=== PATIENT | female | born 1980 | race Caucasian/White ===

== ENCOUNTER 2017-12-16 13:40 | Outpatient (CLI) | payer BC | END 2017-12-16 13:41 | disposition home or self-care (01) | LOC: BICRAD 13:40 | PROVIDERS: ATTEND Internal Medicine | DX: R10.84 Generalized abdominal pain (principal) | CPT/HCPCS: 74018 ==

== ENCOUNTER 2019-10-12 13:49 | Outpatient (CLI) | payer BC ==
--- NOTE | 2019-10-12 14:44 | MMO ---
Bilateral MAMMO Bilat Diag [facility]. CLINICAL HISTORY: Patient is 38 years old and is seen for diagnostic exam. The patient has the following family history of breast cancer: mother. 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 The patient has a history of left Lumpectomy in February, - dcis. VIEWS: The views performed were: bilateral craniocaudal with tomosynthesis; bilateral mediolateral oblique with tomosynthesis; bilateral mediolateral with tomosynthesis; and bilateral exaggerated craniocaudal. FILMS COMPARED: The present examination has been compared to prior imaging studies performed at [facility] on 01/20/2019 and 01/24/2019. This study has been interpreted with the assistance of computer-aided detection. MAMMOGRAM FINDINGS: The breasts are heterogeneously dense, which could obscure a lesion on mammography. Finding 1: There is an area of architectural distortion seen in the posterior upper-outer region of the left breast. This architectural distortion at least partly, and probably entirely, represents post operative changes. However, because the appearance is a significant change, short interval follow up is recommended to rule out any potential underlying neoplatic tissue. Finding 2: Finding remains unchanged from the prior study. There are no suspicious masses, calcifications or areas of architectural distortion in the right breast. IMPRESSION: FINDING 1: AREA OF ARCHITECTURAL DISTORTION IN THE LEFT BREAST IS PROBABLY BENIGN. FOLLOW-UP IN 6 MONTHS IS RECOMMENDED. FINDING 2: FINDING IN THE RIGHT BREAST IS BENIGN. THE RESULTS OF THIS EXAM WERE SENT TO THE PATIENT. ACR BI-RADS Category 3 - Probably benign finding - short interval follow-up suggested. [facility] will notify the patient of the need for additional imaging services. MAMMOGRAPHY NOTE: 1. A negative mammogram report should not delay a biopsy if a dominant of clinically suspicious mass is present. 2. Approximately 10% to 15% of breast cancers are not detected by mammography. 3. Adenosis and dense breasts may obscure an underlying neoplasm. Reported by: DINO CHAN MD Electonically Signed: [id number]
== END 2019-10-12 13:50 | disposition home or self-care (01) ==
LOC: BICMAMMO 13:49
PROVIDERS: ATTEND Family Medicine
DX: Z08 Encounter for follow-up examination after completed treatment for malignant neoplasm (principal); Z85.3 Personal history of malignant neoplasm of breast
CPT/HCPCS: 77066; G0279

== ENCOUNTER 2020-05-17 14:00 | Outpatient (CLI) | payer BC ==
--- NOTE | 2020-05-17 15:29 | RAD ---
EXAM: CHEST TWO VIEWS: 05/17/20 HISTORY: History of COVID-19, acute bronchitis. FINDINGS: Heart size is normal. The lungs are clear. No confluent pneumonia, overt edema or pleural effusion. IMPRESSION: No significant acute intrathoracic disease. POS: OFF
== END 2020-05-17 14:01 | disposition home or self-care (01) ==
LOC: BICRAD 14:00
PROVIDERS: ATTEND Family Medicine
DX: J20.9 Acute bronchitis, unspecified (principal); Z86.19 Personal history of other infectious and parasitic diseases
CPT/HCPCS: 71046

== ENCOUNTER 2020-08-14 09:35 | Outpatient (CLI) | payer BC | END 2020-08-14 09:36 | disposition home or self-care (01) | LOC: BICMAMMO 09:35 | PROVIDERS: ATTEND Family Medicine | DX: Z08 Encounter for follow-up examination after completed treatment for malignant neoplasm (principal); Z86.000 Personal history of in-situ neoplasm of breast | CPT/HCPCS: 77066; G0279 ==